=== PATIENT | male | born 1965 | race Caucasian/White ===

== ENCOUNTER 2018-07-18 11:47 | Emergency (ER) | payer BC ==
[~2018-07-18] VITALS: Ht 193 cm; Wt 95.0 kg
[2018-07-18 11:56] VITALS: BP 144/90
--- NOTE | 2018-07-18 12:29 | NUR ---
PT IS 53 YO MALE C/O URINARY RETENTION SINCE 2199 LAST NIGHT, WHILE WAITING FOR BED PT WAS ABLE TO URINATE AT APPROX 1215 TODAY, PT HAS APPT 07/31 FOR FOLLOW UP, HAS HAD THIS PROBLEM FOR 4 YEARS, WAITING TO BE EVALUATED BY PROVIDER, RESTING QUIETLY ON [facility]
[2018-07-18 12:34] LABS: CLARITY,URINE BLOODY (Clear); COLOR,URINE RED (Yellow); UA COLLECTION TYPE CLN CATCH MIDSTREAM
[2018-07-18 12:52] LABS: BACTERIA,URINE 1+ /HPF (Neg); RBC,URINE TNTC /HPF (0-2); SQUAMOUS EPITHELIAL CELL,UR NONE SEEN /LPF (FEW); WBC,URINE 0-4 /HPF (0-4)
[2018-07-19] MEDS ORDERED: METO25TA6 PO (12:24)
[2018-07-19] MEDS ORDERED: HYDR25TA4 PO (12:24)
== END 2018-07-18 13:27 | disposition home or self-care (01) ==
LOC: ER 11:47
DX: R33.9 Retention of urine, unspecified (principal); R31.9 Hematuria, unspecified; N32.9 Bladder disorder, unspecified; I10 Essential (primary) hypertension; F12.90 Cannabis use, unspecified, uncomplicated; Z98.890 Other specified postprocedural states; Z88.8 Allergy status to other drugs, medicaments and biological substances
CPT/HCPCS: 81001; 99283

== ENCOUNTER 2018-07-19 07:17 | Inpatient (IN) | payer BC ==
[2018-07-19] VITALS (15 sets, daily range): BP systolic 135–159; BP diastolic 86–112
[~2018-07-19] VITALS: Ht 193 cm; Wt 95.0 kg
[2018-07-19 09:46] LABS: CLARITY,URINE BLOODY (Clear); COLOR,URINE RED (Yellow); UA COLLECTION TYPE FOLEY CATH
[2018-07-19 09:55] LABS: BACTERIA,URINE 1+ /HPF (Neg); RBC,URINE TNTC /HPF (0-2); SQUAMOUS EPITHELIAL CELL,UR NONE SEEN /LPF (FEW)
[2018-07-19] MEDS ORDERED: normal saline 1000ML IV soln IVB ONE (10:30)
[2018-07-19 11:04] LABS: HEMATOCRIT 30.5 % (42.0-52.0); HEMOGLOBIN 9.5 g/dl (14.0-17.9); MEAN CORPUSCULAR HGB CONC 31.2 g/dL (33.0-36.5); MEAN CORPUSCULAR VOLUME 70.6 FL (78-98); MEAN PLATELET VOLUME 7.8 FL (7.4-10.4); PLATELET COUNT 445 X10'3 (140-440); RED BLOOD COUNT 4.33 X10'6 (4.70-6.10); RED CELL DISTRIBUTION WIDTH 17.2 % (11.5-14.5); WHITE BLOOD COUNT 12.8 X10'3 (4.5-11.0)
[2018-07-19 11:21] LABS: ALANINE AMINOTRANSFERASE 24 U/L (12-78); ALBUMIN 3.8 G/DL (3.4-5.0); ALBUMIN/GLOBULIN RATIO 1.1 (1.1-1.5); ALKALINE PHOSPHATASE 52 IU/L (46-116); ANION GAP 11 (8-16); BILIRUBIN,TOTAL 0.9 MG/DL (0.1-1.0); BLOOD UREA NITROGEN 17 MG/DL (7-18); BUN/CREATININE RATIO 12.7 (5.4-32.0); CALCIUM 9.6 MG/DL (8.5-10.1); CHLORIDE 105 MMOL/L (99-107); CREATININE 1.34 MG/DL (0.60-1.10); GLUCOSE 121 MG/DL (70-104); POTASSIUM 3.5 MMOL/L (3.5-5.1); SODIUM 142 MMOL/L (135-145); TOTAL PROTEIN 7.4 G/DL (6.4-8.2); eGFR 56 ML/MIN
[2018-07-19] MEDS ORDERED: iohexol 300mg/ml 100ml inj. ONE (11:23)
[2018-07-19 11:28] LABS: ANISOCYTOSIS 1+; PLATELET ESTIMATE INCREASED; TOTAL CELLS COUNTED 100
[2018-07-19 11:30] LABS: ELLIPTOCYTES FEW; POLYCHROMASIA FEW; SCHISTOCYTES FEW; TOXIC GRANULATION 1+
[2018-07-19 11:43] LABS: ASPARTATE AMINO TRANSFERASE 17 U/L (10-37)
[2018-07-19] MEDS ORDERED: HYDR25TA4 PO (12:24)
[2018-07-19] MEDS ORDERED: METO25TA6 PO (12:24)
[2018-07-19] MEDS ORDERED: magnesium 4gm in 100ml NS 100 ML IV PRN (14:10)
[2018-07-19] MEDS ORDERED: ondansetron/PF 4mg/2ml inj IV PRN ×2 (14:10→18:45)
[2018-07-19] MEDS ORDERED: potassium Cl 40MEQ/NS 500ml 500 ML IV PRN ×2 (14:10)
[2018-07-19] MEDS ORDERED: magnesium Cl slow-release 64mg tablet PO PRN (14:10)
[2018-07-19] MEDS ORDERED: magnesium 2GM in 50ml NS 50 ML IV PRN (14:10)
[2018-07-19] MEDS ORDERED: HYDROcodone/acetaminophen 10/325mg tab PO PRN (14:10)
[2018-07-19] MEDS ORDERED: potassium Cl 20 mEq SR tablet PO PRN ×2 (14:10)
[2018-07-19] MEDS ORDERED: morphine 4 MG/ML inj SYRINge IV PRN ×4 (14:10→18:45)
[2018-07-19] MEDS ORDERED: acetaminophen 325mg tablet PO PRN ×2 (14:10)
[2018-07-19] MEDS ORDERED: mag hydrox/Alum hydrox/simeth 30ml oral suspension PO PRN (14:10)
[2018-07-19] MEDS ORDERED: magnesium hydroxide 30ml (MOM) UD suspension PO PRN (14:10)
[2018-07-19] MEDS ORDERED: HYDROcodone/acetaminophen 5mg/325mg tablet PO PRN (14:10)
[2018-07-19] MEDS: normal saline 1000ml 1,000 ML IV SCH (14:30)
--- NOTE | 2018-07-19 15:45 | NUR ---
Patient in room 357B. I have received report from KIESHA Perales in ED and had the opportunity to ask questions and assume patient care.
--- NOTE | 2018-07-19 16:14 | NUR ---
Patient in room 357B. I have received report from KIESHA Valenzuela and had the opportunity to ask questions and assume patient care.
--- NOTE | 2018-07-19 17:00 | NUR ---
Two RN Skin Assessment has been completed at 1645 with KIESHA Valenzuela ,all skin assessed,with the following findings. No impaired skin integrity noted at this time.
--- NOTE | 2018-07-19 17:01 | NUR ---
Pt being transported to OR. All belongings left in room.
--- NOTE | 2018-07-19 17:18 | NUR ---
Problems reprioritized. Patient report given, questions answered & plan of care reviewed with KIESHA Crane in recovery.
[2018-07-19] MEDS ORDERED: midazolam 2 mg/2 ml injection ONE (17:32)
[2018-07-19] MEDS ORDERED: fentaNYL/PF 50MCG/1 ML 2ML syringe ONE ×3 (17:32→18:49)
[2018-07-19] MEDS ORDERED: rocuronium 10mg/ml inj IV ONE (18:22)
[2018-07-19] MEDS ORDERED: LIDOcaine 2% (20mg/ml) 5ml vial ONE (18:22)
[2018-07-19] MEDS ORDERED: propofol inj 20 ML IV ONE (18:22)
[2018-07-19] MEDS ORDERED: ondansetron/PF 4mg/2ml inj ONE (18:22)
[2018-07-19] MEDS ORDERED: neostigmine methylsulfate 1 MG/ML 10ml vial ONE (18:22)
[2018-07-19] MEDS ORDERED: dexamethasone sod phosphate 4mg/ml inj. ONE (18:22)
[2018-07-19] MEDS ORDERED: glycopyrrolate 0.2mg/ml inj ONE (18:22)
--- NOTE | 2018-07-19 18:37 | NUR ---
Problems reprioritized. Patient report given, questions answered & plan of care reviewed with KIESHA Mota.
[2018-07-19] MEDS ORDERED: ringers solution, lacted 1,000 ML IV SCH (18:41)
[2018-07-19] MEDS ORDERED: proCHLORperazine 10 MG/2 ml inj IV PRN (18:45)
[2018-07-19] MEDS ORDERED: meperidine/PF 25mg/ml syringe IV PRN ×3 (18:45)
--- NOTE | 2018-07-19 19:00 | NUR ---
Received from OR via BED, accompanied by Anesthesiologist DR ORTIZ-- and report given by Anesthesiolgist. PATIENT A&OX4, DENIES PAIN, V/S WNL, NEUROVASCULAR CHECKS INTACT, 20G PIV RUE, SCD ON, F/C DRAINING CLEAR PINK YELLOW URINE
[2018-07-19 19:25] LABS: ISTAT CREATININE 1.2 mg/dL (0.8-1.3); ISTAT HGB 9.2 g/dl (14.0-18.0); ISTAT IONIZED CALCIUM 1.22 mmol/L (1.03-1.32); ISTAT K 3.5 mmol/L (3.5-5.1); POC BUN/CREATININE RATIO 11.7 (5.4-32.0)
--- NOTE | 2018-07-19 19:40 | NUR ---
PATIENT A&OX4, DENIES PAIN, V/S WNL, NEUROVASCULAR CHECKS INTACT, 20G PIV RUE, SCD ON, F/C DRAINING CLEAR PINK YELLOW URINE. PATIENT TAKEN TO 357B WITH ALL BELONGINGS AND HOOKED UP TO MONITORS IN ROOM AND REPORT GIVEN TO NEUROSURGERY RESEARCH DIRECTOR WHO HAS TAKEN OVER PATIENT CARE.
--- NOTE | 2018-07-19 20:05 | NUR ---
Received report from OR. Patient arrived on surgical bed on 2LNC. In no apparent distress. Oriented patient to room and regimen. FC draining veras red urine. Patient with complaints of "feeling like its not draining" in reference to the catheter. Bladder scan showed 35mL in bladder. Will phone MD Mcclellan to discuss other possible causes.
[2018-07-19] MEDS ORDERED: opium/belladonna alkaloids No. 15A 30mg rectal suppository RC PRN (20:40)
[2018-07-19] MEDS: metoprolol tartrate 25mg tablet PO SCH (20:46)
[2018-07-19] MEDS ORDERED: temazepam 15mg capsule PO PRN (21:00)
[2018-07-20] VITALS: BP 159/86
[2018-07-20] MEDS: normal saline 1000ml 1,000 ML IV SCH ×2 (00:10→10:07)
[2018-07-20 04:00] VITALS: BP 154/105
[2018-07-20 06:01] LABS: HEMATOCRIT 24.8 % (42.0-52.0); HEMOGLOBIN 7.8 g/dl (14.0-17.9); MEAN CORPUSCULAR HEMOGLOBIN 21.9 PG (27.0-31.0); MEAN CORPUSCULAR HGB CONC 31.2 g/dL (33.0-36.5); MEAN PLATELET VOLUME 7.7 FL (7.4-10.4); PLATELET COUNT 365 X10'3 (140-440); RED BLOOD COUNT 3.54 X10'6 (4.70-6.10); RED CELL DISTRIBUTION WIDTH 16.8 % (11.5-14.5); WHITE BLOOD COUNT 11.6 X10'3 (4.5-11.0)
--- NOTE | 2018-07-20 06:16 | NUR ---
Patient in room [facility]. I have received report from KIESHA JONES and had the opportunity to ask questions and assume patient care.
--- NOTE | 2018-07-20 06:19 | NUR ---
Reported off to [facility]. Patient is awake and alert on room air. In no apparent distress. Call light and items of frequent use within reach.
[2018-07-20 06:26] LABS: ALANINE AMINOTRANSFERASE 18 U/L (12-78); ALKALINE PHOSPHATASE 40 IU/L (46-116); ANION GAP 13 (8-16); ASPARTATE AMINO TRANSFERASE 17 U/L (10-37); BLOOD UREA NITROGEN 18 MG/DL (7-18); BUN/CREATININE RATIO 14.8 (5.4-32.0); CALCIUM 8.1 MG/DL (8.5-10.1); CHLORIDE 109 MMOL/L (99-107); CREATININE 1.22 MG/DL (0.60-1.10); GLUCOSE 130 MG/DL (70-104); MAGNESIUM 1.7 MG/DL (1.5-2.4); POTASSIUM 3.8 MMOL/L (3.5-5.1); SODIUM 143 MMOL/L (135-145); TOTAL CARBON DIOXIDE 21.2 MMOL/L (24-32); TOTAL PROTEIN 6.1 G/DL (6.4-8.2); eGFR 62 ML/MIN
[2018-07-20 06:49] LABS: BANDS% (MANUAL) 0.5 % (0-10); BASOPHILS % (MANUAL) 0.5 % (0-1); LYMPHOCYTES % (MANUAL) 8.5 % (21-51); NEUTROPHILS % (MANUAL) 87.5 % (42-75); TOTAL CELLS COUNTED 200
[2018-07-20 06:50] LABS: ANISOCYTOSIS 1+; HYPOCHROMASIA 1+; MICROCYTOSIS 2+; PLATELET ESTIMATE NORMAL; ROULEAUX 1+
[2018-07-20 06:51] LABS: ELLIPTOCYTES FEW; POLYCHROMASIA 1+; TOXIC GRANULATION 1+
[2018-07-20 07:15] VITALS: BP 135/92
[2018-07-20 07:53] VITALS: BP_SYST 135
[2018-07-20] MEDS: metoprolol tartrate 25mg tablet PO SCH (07:53)
[2018-07-20] MEDS ORDERED: K and/or MAG REPLACEMENT MC SCH (08:00)
[2018-07-20] MEDS ORDERED: HYDROchlorothiazide 25mg tablet PO SCH (08:00)
--- NOTE | 2018-07-20 14:15 | NUR ---
Patient is alert and oriented and no apparent distress. Discussed with patient discharge instructions. Educated patient vincent catheter care. Switched vincent catheter drainage bag to leg bag. Night time bag also given to patient. Patient verbalizes understanding of instructions and able to return demonstrate vincent catheter care. IV dc'd. Patient in room getting dressed and gathering belongings for dc.
--- NOTE | 2018-07-20 14:38 | NUR ---
Patient A&O, dc'd with all personal belongings. Escorted out in wheelchair by PCT.
== END 2018-07-20 14:41 | disposition home or self-care (01) | DRG 661 ==
LOC: ER 07:18 → ED HOLD 14:07 → SUR 3N 16:16
PROVIDERS: ADMIT Internal Medicine; ATTEND Internal Medicine
PROC: 0T778DZ Dilation of Left Ureter with Intraluminal Device, Via Natural or Artificial Opening Endoscopic (ICD-10-PCS; 2018-07-19)
PROC: 0TBB8ZZ Excision of Bladder, Via Natural or Artificial Opening Endoscopic (ICD-10-PCS; 2018-07-19)
PROC: 0TCB8ZZ Extirpation of Matter from Bladder, Via Natural or Artificial Opening Endoscopic (ICD-10-PCS; principal; 2018-07-19 17:26)
DX: N32.9 Bladder disorder, unspecified (principal); F12.90 Cannabis use, unspecified, uncomplicated; F17.210 Nicotine dependence, cigarettes, uncomplicated; I10 Essential (primary) hypertension; R31.0 Gross hematuria; Z87.11 Personal history of peptic ulcer disease
CPT/HCPCS: 93306; 96360; 99285; Z7506; 36415; 74018; 74177; 80047; 80053; 81001; 83735; 85025; 86885; 86900; 86901; 87070; 87088; 93005; A4344; A4402; C2617; G0378; J1100; J2001; J2250; J2405; J2704; J2710; J3010; J3490; J7030; J7120; Q9967

== ENCOUNTER 2018-07-23 09:49 | Emergency (ER) | payer BC ==
[~2018-07-23] VITALS: Ht 193 cm; Wt 101.0 kg
[~2018-07-23 09:49] MED LIST: HYDR25TA4 PO; METO25TA6 PO
[2018-07-23 09:50] VITALS: BP 130/86
[2018-07-23 10:14] LABS: CLARITY,URINE TURBID (Clear); COLOR,URINE AMBER (Yellow); GLUCOSE, URINE NEGATIVE (Neg); KETONES,URINE TRACE mg/dl (Neg); LEUKOCYTE ESTERASE ,URINE MODERATE (Neg); NITRITES, URINE NEGATIVE (Neg); OCCULT BLOOD,URINE LARGE (Neg); PROTEIN,URINE >=300 mg/dl (Neg)
[2018-07-23 10:24] LABS: UA COLLECTION TYPE FOLEY CATH
[2018-07-23 10:26] LABS: WBC,URINE TNTC /HPF (0-4)
[2018-07-23 10:27] LABS: BACTERIA,URINE 2+ /HPF (Neg); RBC,URINE TNTC /HPF (0-2); SQUAMOUS EPITHELIAL CELL,UR FEW /LPF (FEW)
[2018-07-23 10:28] LABS: MUCUS STRANDS FEW /LPF (Neg)
[2018-07-23] MEDS ORDERED: FLO0.4C PO (10:35)
[2018-07-23] MEDS ORDERED: CIPR-230 PO (10:35)
--- NOTE | 2018-07-23 10:44 | NUR ---
PATIENT DRINKING WATER. HE IS INFORMED HE CAN BE DISCHARGED AFTER HE IS ABLE TO URINATE
== END 2018-07-23 11:33 | disposition home or self-care (01) ==
LOC: ER 09:50
DX: T83.9XXA Unspecified complication of genitourinary prosthetic device, implant and graft, initial encounter (principal); N39.0 Urinary tract infection, site not specified; I10 Essential (primary) hypertension; F12.90 Cannabis use, unspecified, uncomplicated; Z88.8 Allergy status to other drugs, medicaments and biological substances; Y84.6 Urinary catheterization as the cause of abnormal reaction of the patient, or of later complication, without mention of misadventure at the time of the procedure; Y92.89 Other specified places as the place of occurrence of the external cause
CPT/HCPCS: 81001; 87088; 99283

== ENCOUNTER 2023-09-15 09:40 | Inpatient (IN) | payer BC ==
[~2023-09-15] VITALS: Ht 193 cm; Wt 100.0 kg
[~2023-09-15 09:40] MED LIST changes: +LOP25T PO; -METO25TA6 PO
[2023-09-15] MEDS: normal saline 500ml IV soln 500 ML IV SCH (10:48)
[2023-09-15 11:08] LABS: BASOPHILS # (AUTO) 0.1 X10'3 (0-0.2); BASOPHILS % (AUTO) 0.5 % (0-1); EOSINOPHILS # (AUTO) 0.2 X10'3 (0-0.9); HEMATOCRIT 48.2 % (42.0-52.0); HEMOGLOBIN 16.6 g/dl (14.0-17.9); LYMPHOCYTES # (AUTO) 1.4 X10'3 (1.1-4.8); LYMPHOCYTES % (AUTO) 7.1 % (21-51); MEAN CORPUSCULAR HEMOGLOBIN 32.9 PG (27.0-31.0); MEAN CORPUSCULAR HGB CONC 34.5 g/dL (33.0-36.5); MEAN CORPUSCULAR VOLUME 95.2 FL (78-98); MEAN PLATELET VOLUME 8.6 FL (7.4-10.4); MONOCYTES # (AUTO) 1.4 X10'3 (0-0.9); MONOCYTES % (AUTO) 7.5 % (2-12); NEUTROPHILS % (AUTO) 83.9 % (42-75); PLATELET COUNT 250 X10'3 (140-440); RED BLOOD COUNT 5.06 X10'6 (4.70-6.10); RED CELL DISTRIBUTION WIDTH 13.8 % (11.5-14.5)
[2023-09-15 11:23] LABS: ALANINE AMINOTRANSFERASE 31 U/L (12-78); ALBUMIN 3.4 G/DL (3.4-5.0); ALBUMIN/GLOBULIN RATIO 0.7 (1.1-1.5); ALKALINE PHOSPHATASE 59 IU/L (46-116); ANION GAP 10 (8-16); ASPARTATE AMINO TRANSFERASE 22 U/L (10-37); BILIRUBIN,TOTAL 2.4 MG/DL (0.1-1.0); BLOOD UREA NITROGEN 19 MG/DL (7-18); BUN/CREATININE RATIO 12.7 (10.0-20.0); C-REACTIVE PROTEIN 8.31 MG/DL (0.0-0.5); CALCIUM 9.8 MG/DL (8.5-10.1); CHLORIDE 101 MMOL/L (99-107); GLUCOSE 109 MG/DL (70-104); SODIUM 139 MMOL/L (135-145); TOTAL CARBON DIOXIDE 28.4 MMOL/L (24-32); eCRCL 65 ML/MIN; eGFR 48 ML/MIN
[2023-09-15] MEDS ORDERED: CefTRIAXone 2gm/D5W 50ml BAG 50 ML IV SCH (11:25)
[2023-09-15] MEDS ORDERED: iohexol 300mg/ml 100ml inj. ONE (11:41)
[2023-09-15] MEDS: normal saline 1000ML IV soln IVB ONE (11:42)
[2023-09-15] MEDS: CefTRIAXone 2gm/D5W 50ml BAG 50 ML IV ONE (11:42)
[2023-09-15] MEDS: potassium Cl 20 mEq SR tablet PO ONE (12:10)
[2023-09-15] MEDS: potassium CL 10mEq/100ml bag 100 ML IV ONE (12:17)
[2023-09-15] MEDS: magnesium 2GM in 50ml NS 50 ML IV ONE (12:58)
[2023-09-15 13:12] LABS: BILIRUBIN,URINE NEGATIVE (Neg); CLARITY,URINE CLEAR (Clear); COLOR,URINE YELLOW (Yellow); GLUCOSE, URINE NEGATIVE (Neg); KETONES,URINE NEGATIVE (Neg); LEUKOCYTE ESTERASE ,URINE NEGATIVE (Neg); NITRITES, URINE NEGATIVE (Neg); OCCULT BLOOD,URINE TRACE-INTACT (Neg); PROTEIN,URINE TRACE mg/dl (Neg); UROBILINOGEN,URINE 0.2 E.U/dL (0.2-1.0)
[2023-09-15 13:16] LABS: UA COLLECTION TYPE NON-SPECIFIED
[2023-09-15 13:18] LABS: BACTERIA,URINE NONE SEEN /HPF (Neg); MUCUS STRANDS NONE SEEN /LPF (Neg); RBC,URINE 0-2 /HPF (0-2); SQUAMOUS EPITHELIAL CELL,UR NONE SEEN /LPF (FEW); WBC,URINE NONE SEEN /HPF (0-4)
[2023-09-15] MEDS ORDERED: ondansetron/PF 4mg/2ml inj IV PRN (14:05)
[2023-09-15] MEDS ORDERED: mag hydrox/Alum hydrox/simeth 30ml oral suspension PO PRN (14:05)
[2023-09-15] MEDS ORDERED: magnesium 4gm in 100ml NS 100 ML IV PRN (14:05)
[2023-09-15] MEDS ORDERED: magnesium 2GM in 50ml NS 50 ML IV PRN (14:05)
[2023-09-15] MEDS ORDERED: potassium Cl 40MEQ/1/2NS 520ml 520 ML IV PRN (14:05)
[2023-09-15] MEDS ORDERED: HYDROmorphone inj. 0.5 MG/0.5 ML DISP.SYRIN IV PRN (14:05)
[2023-09-15] MEDS ORDERED: HYDROmorphone/PF 0.2 MG/ML SYRINGE IV PRN (14:05)
[2023-09-15] MEDS: vancomycin/NS 1 GM ADD-VANTAGE 250 ML X 1 DOSE IV ONE (14:11)
[2023-09-15] MEDS: normal saline 1000ml 1,000 ML IV SCH (14:12)
[2023-09-15] MEDS: nicotine 14mg patch - 24hr TD SCH (15:02)
[2023-09-15 16:10] VITALS: BP 126/84; PULSE 86; RESP 18; TEMP 97.5; O2SAT 98
[2023-09-15] MEDS: piperacillin/tazo 4.5gm/100ml 100 ML IV SCH (16:48)
[2023-09-15] MEDS ORDERED: HYDROcodone/acetaminophen 10/325mg tab PO PRN (17:50)
[2023-09-15] MEDS ORDERED: HYDROcodone/acetaminophen 5mg/325mg tablet PO PRN (17:50)
[2023-09-15 18:26] LABS: ALANINE AMINOTRANSFERASE 23 U/L (12-78); ALBUMIN 2.7 G/DL (3.4-5.0); ALBUMIN/GLOBULIN RATIO 0.7 (1.1-1.5); ALKALINE PHOSPHATASE 44 IU/L (46-116); ANION GAP 13 (8-16); ASPARTATE AMINO TRANSFERASE 15 U/L (10-37); BILIRUBIN,TOTAL 1.4 MG/DL (0.1-1.0); BLOOD UREA NITROGEN 17 MG/DL (7-18); BUN/CREATININE RATIO 12.8 (10.0-20.0); CALCIUM 8.7 MG/DL (8.5-10.1); CHLORIDE 105 MMOL/L (99-107); CREATININE 1.33 MG/DL (0.60-1.10); GLUCOSE 134 MG/DL (70-104); SODIUM 142 MMOL/L (135-145); TOTAL CARBON DIOXIDE 24.3 MMOL/L (24-32); TOTAL PROTEIN 6.5 G/DL (6.4-8.2); eCRCL 73 ML/MIN; eGFR 55 ML/MIN
[2023-09-15 18:28] LABS: POTASSIUM 2.9 MMOL/L (3.5-5.1)
[2023-09-15] MEDS: potassium Cl 20 mEq SR tablet PO PRN (19:37)
[2023-09-15] MEDS: docusate sod 100mg capsule PO SCH (19:41)
[2023-09-15] MEDS: metoprolol tartrate 25mg tablet PO SCH (19:42)
[2023-09-15] MEDS: heparin, porcine 5000 units/ml vial SQ SCH (19:48)
[2023-09-15] MEDS: K and/or MAG REPLACEMENT MC SCH (19:51)
[2023-09-15 22:00] VITALS: BP 131/90; PULSE 74; RESP 20; TEMP 99.3; O2SAT 97
[2023-09-16] VITALS (26 sets, daily range): BP systolic 124–161; BP diastolic 90–116; PULSE 82–109; RESP 14–22; TEMP 97.3–99.5; O2SAT 95–100
[2023-09-16] MEDS: vancomycin/NS 1 GM ADD-VANTAGE 250 ML IV SCH (02:10)
[2023-09-16 05:43] LABS: APTT 31 SECONDS (22-32); PROTHROMBIN TIME 11.1 SECONDS (9.0-12.0)
[2023-09-16 05:51] LABS: ALANINE AMINOTRANSFERASE 21 U/L (12-78); ALBUMIN 2.5 G/DL (3.4-5.0); ALBUMIN/GLOBULIN RATIO 0.7 (1.1-1.5); ALKALINE PHOSPHATASE 40 IU/L (46-116); ANION GAP 11 (8-16); ASPARTATE AMINO TRANSFERASE 17 U/L (10-37); BILIRUBIN,TOTAL 1.8 MG/DL (0.1-1.0); BLOOD UREA NITROGEN 17 MG/DL (7-18); BUN/CREATININE RATIO 11.8 (10.0-20.0); CALCIUM 8.2 MG/DL (8.5-10.1); CHLORIDE 108 MMOL/L (99-107); CREATININE 1.44 MG/DL (0.60-1.10); GLUCOSE 112 MG/DL (70-104); MAGNESIUM 1.9 MG/DL (1.5-2.4); POTASSIUM 3.7 MMOL/L (3.5-5.1); SODIUM 142 MMOL/L (135-145); TOTAL PROTEIN 6.2 G/DL (6.4-8.2); eCRCL 68 ML/MIN; eGFR 50 ML/MIN
[2023-09-16 06:01] LABS: BASOPHILS % (AUTO) 0.3 % (0-1); EOSINOPHILS # (AUTO) 0.2 X10'3 (0-0.9); EOSINOPHILS % (AUTO) 1.5 % (0-6); HEMATOCRIT 40.8 % (42.0-52.0); HEMOGLOBIN 13.9 g/dl (14.0-17.9); LYMPHOCYTES # (AUTO) 1.3 X10'3 (1.1-4.8); LYMPHOCYTES % (AUTO) 11.5 % (21-51); MEAN CORPUSCULAR HEMOGLOBIN 32.4 PG (27.0-31.0); MEAN CORPUSCULAR HGB CONC 34.2 g/dL (33.0-36.5); MEAN CORPUSCULAR VOLUME 94.7 FL (78-98); MEAN PLATELET VOLUME 8.4 FL (7.4-10.4); MONOCYTES # (AUTO) 1.1 X10'3 (0-0.9); MONOCYTES % (AUTO) 9.7 % (2-12); NEUTROPHILS # (AUTO) 8.6 X10'3 (1.8-7.7); PLATELET COUNT 184 X10'3 (140-440); RED BLOOD COUNT 4.31 X10'6 (4.70-6.10); RED CELL DISTRIBUTION WIDTH 13.4 % (11.5-14.5); WHITE BLOOD COUNT 11.2 X10'3 (4.5-11.0)
[2023-09-16] MEDS ORDERED: BUPIVAcaine/PF 2.5mg/ml (0.25%) 10ml vial ONE (07:36)
[2023-09-16] MEDS ORDERED: LIDOcaine 1% 30ml preserv. free vial ONE (07:36)
[2023-09-16] MEDS ORDERED: morphine 4 MG/ML inj SYRINge IV PRN (08:10)
[2023-09-16] MEDS: ringers solution, lacted 1,000 ML IV SCH (08:10)
[2023-09-16] MEDS ORDERED: morphine 2 MG/ML inj. syringe IV PRN (08:10)
[2023-09-16] MEDS ORDERED: meperidine/PF 25mg/ml syringe IV PRN ×3 (08:10)
[2023-09-16] MEDS ORDERED: proCHLORperazine 10 MG/2 ml inj IV PRN (08:10)
[2023-09-16] MEDS ORDERED: ondansetron/PF 4mg/2ml inj IV PRN (08:10)
[2023-09-16] MEDS ORDERED: sevoflurane 250ml liquid IH ONE (08:16)
[2023-09-16] MEDS ORDERED: fentaNYL/PF 50MCG/1 ML 2ML syringe ONE (08:20)
[2023-09-16] MEDS ORDERED: rocuronium 10mg/ml inj IV ONE ×2 (08:20→08:56)
[2023-09-16] MEDS ORDERED: midazolam 1 mg/ML 2ml injection ONE (08:20)
[2023-09-16] MEDS ORDERED: propofol inj 20 ML IV ONE (08:21)
[2023-09-16] MEDS ORDERED: neostigmine methylsulfate 1 MG/ML 10ml vial ONE (08:56)
[2023-09-16] MEDS ORDERED: glycopyrrolate 0.2mg/ml inj ONE (08:56)
[2023-09-16] MEDS: albuterol 2.5 MG/3 ML nebule NEB STA (09:26)
[2023-09-16] MEDS ORDERED: HYDROcodone/acetaminophen 5mg/325mg tablet PO PRN (09:35)
[2023-09-16] MEDS ORDERED: naloxone 0.4 mg/ml inj IV PRN (09:35)
[2023-09-16] MEDS: hydrALAZINE 20mg/ml inj. IV PRN (14:35)
[2023-09-16] MEDS ORDERED: AMOX-580 PO (16:19)
[2023-09-17] VITALS (7 sets, daily range): BP systolic 136–173; BP diastolic 96–124; PULSE 66–78; RESP 14–20; TEMP 97.8–98.7; O2SAT 95–99
[2023-09-17] MEDS: VANCOMYCIN LEVEL IV ONE (01:30)
[2023-09-17 03:18] LABS: ALANINE AMINOTRANSFERASE 23 U/L (12-78); ALBUMIN 2.2 G/DL (3.4-5.0); ALBUMIN/GLOBULIN RATIO 0.6 (1.1-1.5); ALKALINE PHOSPHATASE 36 IU/L (46-116); ANION GAP 11 (8-16); ASPARTATE AMINO TRANSFERASE 16 U/L (10-37); BILIRUBIN,TOTAL 1.5 MG/DL (0.1-1.0); BLOOD UREA NITROGEN 14 MG/DL (7-18); BUN/CREATININE RATIO 10.2 (10.0-20.0); CALCIUM 7.8 MG/DL (8.5-10.1); CHLORIDE 109 MMOL/L (99-107); CREATININE 1.37 MG/DL (0.60-1.10); GLUCOSE 110 MG/DL (70-104); MAGNESIUM 1.9 MG/DL (1.5-2.4); POTASSIUM 3.3 MMOL/L (3.5-5.1); SODIUM 143 MMOL/L (135-145); TOTAL PROTEIN 5.8 G/DL (6.4-8.2); eCRCL 71 ML/MIN; eGFR 53 ML/MIN
[2023-09-17] MEDS: potassium Cl 20 mEq SR tablet PO PRN (04:08)
[2023-09-17] MEDS: acetaminophen 325mg tablet PO PRN (04:29)
[2023-09-17 06:38] LABS: BASOPHILS % (AUTO) 0.5 % (0-1); EOSINOPHILS # (AUTO) 0.3 X10'3 (0-0.9); EOSINOPHILS % (AUTO) 2.9 % (0-6); HEMATOCRIT 38.6 % (42.0-52.0); HEMOGLOBIN 13.4 g/dl (14.0-17.9); LYMPHOCYTES # (AUTO) 0.9 X10'3 (1.1-4.8); LYMPHOCYTES % (AUTO) 10.1 % (21-51); MEAN CORPUSCULAR HEMOGLOBIN 32.7 PG (27.0-31.0); MEAN CORPUSCULAR HGB CONC 34.6 g/dL (33.0-36.5); MEAN CORPUSCULAR VOLUME 94.4 FL (78-98); MEAN PLATELET VOLUME 8.3 FL (7.4-10.4); MONOCYTES # (AUTO) 0.8 X10'3 (0-0.9); MONOCYTES % (AUTO) 9.6 % (2-12); NEUTROPHILS # (AUTO) 6.8 X10'3 (1.8-7.7); NEUTROPHILS % (AUTO) 76.9 % (42-75); PLATELET COUNT 181 X10'3 (140-440); RED BLOOD COUNT 4.09 X10'6 (4.70-6.10); RED CELL DISTRIBUTION WIDTH 13.9 % (11.5-14.5); WHITE BLOOD COUNT 8.8 X10'3 (4.5-11.0)
[2023-09-17] MEDS: HYDROchlorothiazide 25mg tablet PO SCH (07:29)
[2023-09-17] MEDS ORDERED: POTA-207 PO (08:31)
[2023-09-17] MEDS: amLODIPine 5mg tablet PO STA (11:03)
[2023-09-17] MEDS: cloNIDine 0.1 mg tablet PO STA (13:01)
[2023-09-17] MEDS: LORazepam 1 MG tablet PO ONE (15:30)
[2023-09-17] MEDS ORDERED: LORazepam 1 MG tablet PO PRN (16:35)
[2023-09-17] MEDS: VANCOmycin 1250MG/NS 250ml Bag 250 ML IV SCH (17:16)
[2023-09-18 06:25] LABS: BASOPHILS # (AUTO) 0.1 X10'3 (0-0.2); BASOPHILS % (AUTO) 0.9 % (0-1); EOSINOPHILS # (AUTO) 0.7 X10'3 (0-0.9); EOSINOPHILS % (AUTO) 8.8 % (0-6); HEMATOCRIT 39.1 % (42.0-52.0); HEMOGLOBIN 13.4 g/dl (14.0-17.9); LYMPHOCYTES # (AUTO) 1.3 X10'3 (1.1-4.8); LYMPHOCYTES % (AUTO) 16.9 % (21-51); MEAN CORPUSCULAR HEMOGLOBIN 32.6 PG (27.0-31.0); MEAN CORPUSCULAR HGB CONC 34.3 g/dL (33.0-36.5); MEAN PLATELET VOLUME 8.1 FL (7.4-10.4); MONOCYTES # (AUTO) 0.7 X10'3 (0-0.9); MONOCYTES % (AUTO) 8.9 % (2-12); NEUTROPHILS # (AUTO) 5.1 X10'3 (1.8-7.7); NEUTROPHILS % (AUTO) 64.5 % (42-75); PLATELET COUNT 202 X10'3 (140-440); RED BLOOD COUNT 4.12 X10'6 (4.70-6.10); RED CELL DISTRIBUTION WIDTH 13.5 % (11.5-14.5); WHITE BLOOD COUNT 7.9 X10'3 (4.5-11.0)
[2023-09-18 06:39] VITALS: BP 137/99; PULSE 68; RESP 18; TEMP 97.9; O2SAT 97
[2023-09-18 06:55] LABS: ALANINE AMINOTRANSFERASE 22 U/L (12-78); ALBUMIN 2.3 G/DL (3.4-5.0); ALBUMIN/GLOBULIN RATIO 0.6 (1.1-1.5); ALKALINE PHOSPHATASE 38 IU/L (46-116); ANION GAP 11 (8-16); ASPARTATE AMINO TRANSFERASE 21 U/L (10-37); BILIRUBIN,TOTAL 1.2 MG/DL (0.1-1.0); BLOOD UREA NITROGEN 14 MG/DL (7-18); BUN/CREATININE RATIO 10.6 (10.0-20.0); CALCIUM 8.6 MG/DL (8.5-10.1); CHLORIDE 107 MMOL/L (99-107); CREATININE 1.32 MG/DL (0.60-1.10); GLUCOSE 88 MG/DL (70-104); MAGNESIUM 2.1 MG/DL (1.5-2.4); POTASSIUM 3.7 MMOL/L (3.5-5.1); SODIUM 139 MMOL/L (135-145); TOTAL PROTEIN 6.2 G/DL (6.4-8.2); eCRCL 74 ML/MIN; eGFR 56 ML/MIN
[2023-09-18 08:00] VITALS: RESP 18
[2023-09-18 10:00] VITALS: BP 160/108; PULSE 72; RESP 20; TEMP 97.6; O2SAT 98
[2023-09-18 10:13] VITALS: RESP 18
[2023-09-19] MEDS ORDERED: VANCOMYCIN LEVEL IV ONE (01:30)
== END 2023-09-18 11:23 | disposition home or self-care (01) | DRG 602 ==
LOC: ER 09:40 → ED HOLD 14:07 → EDBEDREQ 14:19 → SUR 3N 16:19
PROVIDERS: ADMIT Family Medicine; ATTEND Family Medicine
PROC: 0J9B0ZZ Drainage of Perineum Subcutaneous Tissue and Fascia, Open Approach (ICD-10-PCS; principal; 2023-09-16 08:16)
DX: L02.215 Cutaneous abscess of perineum (principal); N17.0 Acute kidney failure with tubular necrosis; K61.1 Rectal abscess; D72.829 Elevated white blood cell count, unspecified; E87.6 Hypokalemia; F17.210 Nicotine dependence, cigarettes, uncomplicated; I10 Essential (primary) hypertension; Z79.899 Other long term (current) drug therapy; Z85.51 Personal history of malignant neoplasm of bladder; Z87.11 Personal history of peptic ulcer disease; Z88.8 Allergy status to other drugs, medicaments and biological substances
CPT/HCPCS: 99285; Z7506; 36415; 72193; 80053; 81001; 82948; 83605; 83735; 84145; 85025; 85610; 85651; 85730; 86140; 87040; 87070; 87075; 87081; 93005; 93975; 94640; 94760; A4215; A4618; A6253; A6258; A6407; A6449; A7000; G0378; J0360; J0696; J1644; J2250; J2543; J2704; J2710; J3010; J3370; J3475; J3490; J7030; J7040; J7120; Q9967

== ENCOUNTER 2024-08-02 11:23 | Emergency (ER) | payer BC ==
[~2024-08-02] VITALS: Ht 193 cm; Wt 97.7 kg
[~2024-08-02 11:23] MED LIST changes: +AMOX-580 PO
[2024-08-02 11:27] VITALS: TEMP 98.2
[2024-08-02] MEDS: LIDOcaine 1% W/epiNEPHrine 1:100,000 20ml vial SQ ONE (13:38)
[2024-08-02] MEDS: cloNIDine 0.1 mg tablet PO ONE (13:39)
[2024-08-02] MEDS ORDERED: SULF1TAB49 PO (13:40)
[2024-08-02] MEDS ORDERED: METR-159 PO (13:40)
[2024-08-02 13:53] VITALS: BP 198/111; PULSE 83; RESP 16; O2SAT 98
== END 2024-08-02 13:56 | disposition home or self-care (01) ==
LOC: ER 11:24
DX: L02.31 Cutaneous abscess of buttock (principal); I10 Essential (primary) hypertension; F12.90 Cannabis use, unspecified, uncomplicated; Z88.8 Allergy status to other drugs, medicaments and biological substances; Z79.899 Other long term (current) drug therapy
CPT/HCPCS: 10060; 99283; A6266; A6407; A6449

== ENCOUNTER 2024-08-04 07:38 | Emergency (ER) | payer BC ==
[~2024-08-04] VITALS: Ht 193 cm; Wt 97.0 kg
[~2024-08-04 07:38] MED LIST changes: +METR-159 PO; +SULF1TAB49 PO
[2024-08-04 07:41] VITALS: BP 196/123; PULSE 71; RESP 16; O2SAT 99
[2024-08-04 08:04] VITALS: TEMP 98
== END 2024-08-04 08:05 | disposition home or self-care (01) ==
LOC: ER 07:39
DX: L02.215 Cutaneous abscess of perineum (principal); I10 Essential (primary) hypertension; F12.90 Cannabis use, unspecified, uncomplicated; Z88.8 Allergy status to other drugs, medicaments and biological substances; Z79.899 Other long term (current) drug therapy
CPT/HCPCS: 99281

== ENCOUNTER 2025-01-20 09:48 | Emergency (ER) | payer BC ==
[~2025-01-20] VITALS: Ht 193 cm; Wt 96.6 kg
[~2025-01-20 09:48] MED LIST changes: -METR-159 PO; -SULF1TAB49 PO
[2025-01-20 09:56] VITALS: BP 159/136; PULSE 98; RESP 18; TEMP 97.4; O2SAT 99
[2025-01-20 11:04] LABS: MEAN PLATELET VOLUME 7.4 FL (7.4-10.4); RED CELL DISTRIBUTION WIDTH 13.6 % (11.5-14.5)
[2025-01-20 11:31] LABS: CREATININE 1.38 MG/DL (0.60-1.10); TOTAL CARBON DIOXIDE 25.4 MMOL/L (24-32); eCRCL 70 ML/MIN; eGFR 53 ML/MIN
== END 2025-01-20 14:38 | disposition left against medical advice (07) ==
LOC: ER 09:48
DX: R41.0 Disorientation, unspecified (principal); Z53.21 Procedure and treatment not carried out due to patient leaving prior to being seen by health care provider
CPT/HCPCS: 36415; 80053; 85025; Q9967